=== PATIENT | male | born 1940 | race Caucasian/White ===

== ENCOUNTER → 2022-01-20 | Outpatient (CLI) | payer MEDICARE ==
--- NOTE | 2022-01-20 15:23 | KCIC ---
EXAMINATION: XR CHEST 2V. HISTORY: 81 years Male Reason: ACUTE COUGH Pt had pneumonia in December. Continued cough and lung soun ds. / History: . . COMPARISON: None. Findings: There is a small to moderate right pleural effusion with the right basilar consolidation or atelectasis. The left lung is clear. The heart size is normal. There is no effusion or pneumothorax. The mediastinum and annel appear unremarkable. There is a pacemaker with 2 cardiac leads seen. Impression: Mild to moderate right pleural effusion with right basilar infiltrate or atelectasis. Electronically signed by: Renan Lucas MD (01/20/2022 3:21 PM) [id number]
== END ==
LOC: KCIC 13:42
PROVIDERS: ATTEND Family Medicine
DX: J90 Pleural effusion, not elsewhere classified (principal); J98.11 Atelectasis; R05.1 Acute cough
CPT/HCPCS: 71046